=== PATIENT | female | born 1945 | race Caucasian/White ===

== ENCOUNTER 2016-09-13 11:14 | Inpatient (IN) | payer MEDICARE, BC ==
--- NOTE | 2016-09-11 16:09 | MH ---
cc: René ANNE. DATE OF ADMISSION: 09/17/2016 PREOPERATIVE DIAGNOSIS Osteoarthritic degeneration right hip, now being admitted for right total hip arthroplasty. HISTORY OF PRESENT ILLNESS: This pleasant 71 year-old female is being admitted today for right total hip arthroplasty due to severe painful osteoarthritic degeneration, right hip. OTHER PAST HISTORY: The patient has a history of anxiety, depression, hypertension, sleep apnea and stomach ulcers from NSAIDs. CURRENT MEDICATIONS: 1. Losartan. 2. Hydrochlorothiazide. 3. Lipitor. 4. Metoprolol. 5. Lexapro. 6. Protonix. 7. Wellbutrin. 8. Calcium. 9. Multivitamins. 10. Ultram as needed. PREVIOUS SURGERIES Right total knee arthroplasty April 28, 2002. Left total knee arthroplasty September 12, 2007. She had a colon resection in March 20, 2008. REVIEW OF SYSTEMS: Noncontributory. FAMILY HISTORY Noncontributory. SOCIAL HISTORY: She does not smoke or drink. ALLERGIES: No known allergies. PHYSICAL EXAMINATION We find a 71 year-old female well-developed, well-nourished oriented x3 complaining of pain in the right hip. Vital signs: Blood pressure 138/68, pulse 68 regular, respirations 20, temperature 97.7, pulse oximetry 98% on room air. HEENT: Eyes PERRL, EOMI. Ears, nose, mouth clear. Neck: Supple. Lungs: Clear. Heart: Regular rate. Abdomen: Soft. Positive bowel sounds, nontender. Extremities: Reveal the right hip to be tender with decreased range of motion, neurovascularly intact to her toes. IMPRESSION Severe painful osteoarthritic degeneration right hip. PLAN Admission right total hip arthroplasty today. The patient was given a prescription for postoperative pain, anticoagulation control as she plans on going home with home health care after surgery. She understands to use back of Bactroban and Hibiclens preoperatively. J. MD TIFFANIE Mcelroy/BERENICE /3:13 PM /3:22 PM
[~2016-09-13] VITALS: Ht 167.6 cm; Wt 94.6 kg
[2016-09-16] MEDS ORDERED: LOSA50TA PO (13:39)
[2016-09-16] MEDS ORDERED: HYDR25TA5 PO (13:39)
[2016-09-16] MEDS ORDERED: POTA10TA8 PO (13:39)
[2016-09-16] MEDS ORDERED: cpap FM (13:39)
[2016-09-16] MEDS ORDERED: MULT-120 PO (13:39)
[2016-09-16] MEDS ORDERED: PROT40TA PO (13:39)
[2016-09-16] MEDS ORDERED: METO-309 PO (13:39)
[2016-09-16] MEDS ORDERED: AMOX500C PO (13:39)
[2016-09-16] MEDS ORDERED: ACET-703 PO (13:39)
[2016-09-16] MEDS ORDERED: TRAM50TA PO (13:39)
[2016-09-16] MEDS ORDERED: LIPI20TA PO (13:39)
[2016-09-16] MEDS ORDERED: CALCTAB23 PO (13:39)
[2016-09-16] MEDS ORDERED: LEXA10TA PO (13:39)
[2016-09-17] MEDS ORDERED: ACETAMINOPHEN 1000 MG/100 ML VIAL IV ONE (06:30)
[2016-09-17] MEDS ORDERED: DEXAMETHASONE SOD PHOS 4 MG/ML VIAL ONE (06:30)
[2016-09-17] MEDS ORDERED: MIDAZOLAM HCL 2 MG/2 ML VIAL ONE (06:30)
[2016-09-17] MEDS ORDERED: FAMOTIDINE 20 MG/2 ML VIAL ONE (06:30)
[2016-09-17] MEDS ORDERED: fentaNYL CITRATE 250 MCG/5 ML AMP ONE (06:30)
[2016-09-17] MEDS ORDERED: LACTATED RINGER'S 1000 ML IV SCH (06:45)
[2016-09-17] MEDS ORDERED: SODIUM CHLORID 0.9% 500 ML IV SCH (06:45)
[2016-09-17] MEDS ORDERED: METOPROLOL TARTRATE 25 MG TAB PO PRN (06:45)
[2016-09-17] MEDS ORDERED: VANCOMYCIN 1000 MG/NS 250 ML (for <70 kg) IV SCH ×2 (06:45)
[2016-09-17] MEDS ORDERED: INSULIN HUMAN REGULAR 1,000 UNITS/10 ML VIAL SQ PRN (06:45)
[2016-09-17] MEDS ORDERED: ceFAZolin 2 GM PREMIX 50 ML IV SCH (06:45)
[2016-09-17 06:52] VITALS: BP 142/73; PULSE 55; RESP 18; TEMP 97.9; O2SAT 99
[2016-09-17] MEDS: CHLORHEXIDINE GLUCONATE 4% SOLN 120 ML BTL TOP SCH (07:06)
[2016-09-17] MEDS: SODIUM CHLORIDE 0.9% IV SCH ×2 (08:00→08:30)
[2016-09-17] MEDS: BUPIVACAINE LIPOSO PF 1.3% INJ 20 ML, BUPIVACAINE PF 0.25% INJ 20 ML in SODIUM CHLORIDE... P-ARTICULR SCH ×2 (08:00→10:23)
[2016-09-17] MEDS: TRANEXAMIC ACID IV SCH ×2 (08:00→08:30)
[2016-09-17 08:11] LABS: BLOOD, URINE NEG (NEG); COMMENT (UR) CATH-CULT NOT IND; CULTURE IF INDICATED CATH CULTURE NOT IND; GLUCOSE,URINE NEG (NEG); KETONE, URINE NEG (NEG); NITRITE,URINE NEG (NEG); SQUAMOUS EPITHELIAL CELL URINE <1 /hpf (0-5); URINE COLOR LIGHT-YELLOW (YELLW/STRAW)
[2016-09-17] MEDS ORDERED: ceFAZolin INJ 1,000 MG VIAL TOP ONE (09:07)
[2016-09-17] MEDS ORDERED: TRANEXAMIC ACID IV SCH (11:00)
[2016-09-17] MEDS ORDERED: SODIUM CHLORIDE 0.9% IV SCH (11:00)
--- NOTE | 2016-09-17 11:26 | HHI.FF ---
Face to Face Verification Diagnosis: (1) Status post total hip replacement, right Physical Therapy Gait training Hip: Total hip, Protocol: Right, Posterior hip precautions, Abduction pillow while in bed, Progress to weight bearing Canvas Knee Splint: When in bed & 2 pillows btw thighs Nursing RN: 3 days/week x 2 weeks Nursing: [employer] teaching, Dressing changes Dressing Changes: Daily dressing change, 4x4s, Gauze, Paper tape I have seen patient Sophie Desai on 09/17/16. My clinical findings support the need for the requested home health care services because: Limited ability to care for self High risk of falls I certify that my clinical findings support that this patient is homebound because: Unsteady gait/balance Darrell Isabel MD Sep 17, 2016 11:26
[2016-09-17] MEDS ORDERED: MISC-163 (11:29)
[2016-09-17] MEDS ORDERED: WALKER WHEELS/F1 MIS (11:29)
[2016-09-17] MEDS ORDERED: Post-op Orders (for Pharmacy) MISC XX ONE (11:30)
[2016-09-17] MEDS ORDERED: DO NOT ADM ANY ANTICOAGULANT DRUGS XX PRN (11:30)
[2016-09-17] MEDS ORDERED: MISCELLANEOUS NURSING INFORMATION XX PRN (11:30)
[2016-09-17] MEDS ORDERED: NALOXONE HCL 0.4 MG/ML AMP IV PRN (11:30)
[2016-09-17] MEDS ORDERED: TRANEXAMIC ACID INJ 0 MG in SODIUM CHLORIDE 0.9% INJ 100 ML IV SCH (11:30)
[2016-09-17] MEDS ORDERED: ACETAMINOPHEN 325 MG TAB PO PRN (11:30)
[2016-09-17] MEDS ORDERED: SODIUM CHLORIDE 0.9% FLUSH 5 ML FLUSH IVF PRN (11:30)
[2016-09-17] MEDS ORDERED: ACETAMINOPHEN 500 MG CPLT PO PRN (11:30)
[2016-09-17] MEDS ORDERED: ONDANSETRON HCL 4 MG/2 ML VIAL IVP PRN (11:30)
[2016-09-17] MEDS ORDERED: BISACODYL 10 MG SUPP PR PRN (11:30)
[2016-09-17] MEDS ORDERED: MORPHINE SULFATE 8 MG/ML INJ IV PUSH PRN (11:30)
[2016-09-17] MEDS ORDERED: TEMAZEPAM 15 MG CAP PO PRN (11:30)
[2016-09-17] MEDS: LACTATED RINGER'S 1000 ML INJ 1,000 ML IV SCH ×2 (12:40→21:53)
--- NOTE | 2016-09-17 13:21 | RADRPT ---
EXAM DATE/TIME: 09/17/2016 11:34 [facility] COMPARISON: No previous studies available for comparison. INDICATIONS : Post op right hip sugery. MEDICAL HISTORY : Unobtainable. SURGICAL HISTORY : Unobtainable. ENCOUNTER: Initial ACUITY: 1 day PAIN SCORE: 4/10 LOCATION: Right hip. FINDINGS: Single view demonstrates placement of total hip prosthesis well seated CONCLUSION: Total hip prosthesis well seated Kam Morris MD on September 17, 2016 at 13:19 Board Certified Radiologist. This report was verified electronically.
[2016-09-17] MEDS: MORPHINE SULFATE 30 MG/30 ML PCA IV SCH (13:39)
[2016-09-17] MEDS: PCA - TOTAL MG MORPHINE DELIVERED PER SHIFT SCH ×2 (14:00→21:53)
[2016-09-17] MEDS ORDERED: ONDANSETRON HCL 4 MG/2 ML VIAL IV PUSH ONE (14:43)
[2016-09-17] MEDS ORDERED: PROPOFOL 200 MG/20 ML AMP IV ONE (14:43)
[2016-09-17] MEDS ORDERED: NORMOSOL R INJ 1,000 ML IV ONE (14:43)
[2016-09-17 15:00] VITALS: BP 130/63; PULSE 68; RESP 17; TEMP 95.4; O2SAT 98
[2016-09-17 18:25] VITALS: O2SAT 97
[2016-09-17 20:00] VITALS: BP 155/80; PULSE 92; RESP 20; TEMP 98.9; O2SAT 97
[2016-09-17] MEDS: METOPROLOL TARTRATE 25 MG TAB PO SCH (21:34)
[2016-09-17] MEDS: CALCIUM/VITAMIN D 250 MG/125 U TAB PO SCH (21:34)
[2016-09-17] MEDS: ATORVASTATIN 20 MG TAB PO SCH (21:34)
[2016-09-17] MEDS: LOSARTAN 50 MG TAB PO SCH (21:34)
[2016-09-17] MEDS: AMOXICILLIN (TRIHYDRATE) 500 MG CAP PO SCH (21:35)
[2016-09-17] MEDS: SODIUM CHLORIDE 0.9% FLUSH 5 ML FLUSH IVF SCH (21:35)
[2016-09-18] VITALS (8 sets, daily range): BP systolic 117–147; BP diastolic 58–66; PULSE 75–98; RESP 15–20; TEMP 96.8–99.5; O2SAT 92–100
[2016-09-18] MEDS: MORPHINE SULFATE 30 MG/30 ML PCA IV SCH (01:14)
[2016-09-18] MEDS: CHLORHEXIDINE GLUCONATE 4% SOLN 120 ML BTL TOP SCH ×2 (03:41→19:35)
[2016-09-18] MEDS: PCA - TOTAL MG MORPHINE DELIVERED PER SHIFT SCH (06:00)
[2016-09-18 08:26] LABS: HEMATOCRIT 32.2 % (35.0-46.0); REVIEW FLAG FINAL
--- NOTE | 2016-09-18 08:26 | PD.ORT.PN ---
Subjective Subjective Remarks pt comfortable today. No complaints. Objective Vitals Vital Signs Date Time Temp Pulse Resp B/P Pulse Ox O2 Delivery O2 Flow Rate FiO2 09/18/16 04:00 97.7 98 20 143/64 94 09/18/16 00:00 99.2 96 20 140/65 95 09/17/16 20:00 98.9 92 20 155/80 97 09/17/16 18:25 97 21 09/17/16 15:00 95.4 68 17 130/63 98 09/17/16 14:00 64 16 144/77 97 Room Air 09/17/16 13:39 16 09/17/16 13:30 66 16 130/76 97 Room Air 09/17/16 12:45 58 16 141/78 97 Room Air 09/17/16 12:30 97.4 56 16 135/73 97 Room Air 09/17/16 12:15 52 16 145/80 97 Room Air 09/17/16 12:00 52 16 144/76 97 Room Air 09/17/16 11:45 84 16 146/75 97 Room Air 09/17/16 11:30 84 16 135/78 97 Room Air 09/17/16 11:25 95.8 58 16 144/76 99 I/O 09/17/16 09/17/16 09/17/16 09/18/16 09/18/16 09/18/16 07:00 15:00 23:00 07:00 15:00 23:00 Intake Total 50 ml 581 ml 1744 ml Output Total 150 ml Balance -100 ml 581 ml 1744 ml Intake Oral 1020 ml IV Total 50 ml 581 ml 724 ml Output Urine Total 150 ml Imaging Last 24 hours Impressions Hip X-Ray 09/17/16 1122 Signed Impressions: Service Date/Time: Saturday, September 17, 2016 11:34 - CONCLUSION: Total hip prosthesis well seated Kam Morris MD Objective Remarks NV intact to toes. Lying in bed at moment. No calf tenderness. Assessment & Plan Ortho Post Op Day #: 1 Problem List: Assessment and Plan OOB, PT, DC PATIENT ACCOUNTS MANAGER, daily wound care. Darrell Isabel MD Sep 18, 2016 08:26
[2016-09-18] MEDS ORDERED: MULTIVITAMINS/MINERALS THERAPEUTIC TAB PO SCH (09:00)
[2016-09-18] MEDS: SODIUM CHLORIDE 0.9% FLUSH 5 ML FLUSH IVF SCH ×2 (09:00→20:43)
[2016-09-18] MEDS: LOSARTAN 50 MG TAB PO SCH ×2 (09:46→20:38)
[2016-09-18] MEDS: PANTOPRAZOLE SOD 40 MG DELAYED RELEASE TAB PO SCH (09:46)
[2016-09-18] MEDS: CALCIUM/VITAMIN D 250 MG/125 U TAB PO SCH ×2 (09:46→20:39)
[2016-09-18] MEDS: ESCITALOPRAM OXALATE 10 MG TAB PO SCH (09:46)
[2016-09-18] MEDS: POTASSIUM CHLORIDE 10 MEQ CONTROLLED RELEASE TAB PO SCH (09:47)
[2016-09-18] MEDS: METOPROLOL TARTRATE 25 MG TAB PO SCH ×2 (09:47→20:38)
[2016-09-18] MEDS: HYDROCHLOROTHIAZIDE 25 MG TAB PO SCH (09:47)
[2016-09-18] MEDS: MAGNESIUM HYDROXIDE SUSP 30 ML CUP PO PRN (09:47)
[2016-09-18] MEDS: AMOXICILLIN (TRIHYDRATE) 500 MG CAP PO SCH ×2 (09:54→20:38)
[2016-09-18] MEDS: ENOXAPARIN SODIUM 30 MG/0.3 ML SYRINGE SQ SCH ×2 (11:51→22:47)
[2016-09-18] MEDS: LACTATED RINGER'S 1000 ML INJ 1,000 ML IV SCH ×2 (12:22→22:35)
[2016-09-18] MEDS: ACETAMINOPHEN/HYDROcodone 325 MG/7.5 MG TAB PO PRN ×2 (13:01→17:44)
[2016-09-18] MEDS: MULTIVITAMINS/MINERALS THERAPEUTIC TAB PO SCH (20:38)
[2016-09-18] MEDS: DOCUSATE SODIUM 100 MG CAP PO SCH (20:38)
[2016-09-18] MEDS: ATORVASTATIN 20 MG TAB PO SCH (20:38)
[2016-09-19 04:58] LABS: HEMATOCRIT 30.6 % (35.0-46.0); REVIEW FLAG FINAL
[2016-09-19] MEDS: MAGNESIUM HYDROXIDE SUSP 30 ML CUP PO PRN (05:53)
[2016-09-19] MEDS: ACETAMINOPHEN/HYDROcodone 325 MG/7.5 MG TAB PO PRN ×3 (05:53→21:05)
[2016-09-19 08:00] VITALS: BP 114/55; PULSE 80; RESP 18; TEMP 97.9; O2SAT 97
[2016-09-19] MEDS: LOSARTAN 50 MG TAB PO SCH ×2 (08:14→21:05)
[2016-09-19] MEDS: PANTOPRAZOLE SOD 40 MG DELAYED RELEASE TAB PO SCH (08:14)
[2016-09-19] MEDS: DOCUSATE SODIUM 100 MG CAP PO SCH ×2 (08:14→21:02)
[2016-09-19] MEDS: ESCITALOPRAM OXALATE 10 MG TAB PO SCH (08:14)
[2016-09-19] MEDS: POTASSIUM CHLORIDE 10 MEQ CONTROLLED RELEASE TAB PO SCH (08:14)
[2016-09-19] MEDS: METOPROLOL TARTRATE 25 MG TAB PO SCH ×2 (08:15→21:05)
[2016-09-19] MEDS: HYDROCHLOROTHIAZIDE 25 MG TAB PO SCH (08:15)
[2016-09-19] MEDS: CALCIUM/VITAMIN D 250 MG/125 U TAB PO SCH ×2 (08:15→21:05)
[2016-09-19] MEDS: MULTIVITAMINS/MINERALS THERAPEUTIC TAB PO SCH ×2 (08:16→21:05)
[2016-09-19] MEDS: SODIUM CHLORIDE 0.9% FLUSH 5 ML FLUSH IVF SCH ×2 (08:16→21:02)
[2016-09-19] MEDS: AMOXICILLIN (TRIHYDRATE) 500 MG CAP PO SCH ×2 (08:16→21:04)
[2016-09-19] MEDS: LACTATED RINGER'S 1000 ML INJ 1,000 ML IV SCH ×2 (08:18→23:04)
[2016-09-19] MEDS: ENOXAPARIN SODIUM 30 MG/0.3 ML SYRINGE SQ SCH ×2 (11:08→23:34)
[2016-09-19 12:00] VITALS: BP 111/54; PULSE 86; RESP 18; TEMP 98.4; O2SAT 95
--- NOTE | 2016-09-19 12:12 | PD.ORT.PN ---
Subjective Subjective Remarks pt comfortable today. No complaints. Objective Vitals Vital Signs Date Time Temp Pulse Resp B/P Pulse Ox O2 Delivery O2 Flow Rate FiO2 09/19/16 08:00 97.9 80 18 114/55 97 09/19/16 06:33 18 09/18/16 23:41 97.6 80 15 117/59 100 09/18/16 19:00 96.8 75 16 126/58 94 09/18/16 16:49 98.7 85 16 124/63 95 I/O 09/18/16 09/18/16 09/18/16 09/19/16 09/19/16 09/19/16 07:00 15:00 23:00 07:00 15:00 23:00 Intake Total 1744 ml 960 ml 480 ml Balance 1744 ml 960 ml 480 ml Intake Oral 1020 ml 960 ml 480 ml IV Total 724 ml # Voids 2 3 # Bowel Movements 0 Result Diagram: 09/19/16 0343 Imaging Last 24 hours Impressions Hip X-Ray 09/17/16 1122 Signed Impressions: Service Date/Time: Saturday, September 17, 2016 11:34 - CONCLUSION: Total hip prosthesis well seated Kam Morris MD Objective Remarks NV intact to toes.Ambulating well with walker. Dressing dry and intact. Assessment & Plan Ortho Post Op Day #: 2 Problem List: Assessment and Plan OOB, PT, daily wound care. Home tomorrow with home health care and PT. Darrell Isabel MD Sep 19, 2016 12:12
[2016-09-19 16:00] VITALS: BP 107/57; PULSE 87; RESP 18; TEMP 98.7; O2SAT 96
[2016-09-19 20:00] VITALS: BP_SYST 105; BP_SYST 115; BP_DIAS 57; BP_DIAS 99; PULSE 95; PULSE 96; RESP 18; RESP 20; TEMP 96.2; TEMP 99.7; O2SAT 95; O2SAT 97
[2016-09-19] MEDS: ATORVASTATIN 20 MG TAB PO SCH (21:04)
[2016-09-20] VITALS: BP 126/59; PULSE 81; RESP 22; TEMP 97.4; O2SAT 95
[2016-09-20 08:00] VITALS: BP 125/60; PULSE 91; RESP 18; TEMP 99.3; O2SAT 94
[2016-09-20] MEDS: AMOXICILLIN (TRIHYDRATE) 500 MG CAP PO SCH (09:00)
[2016-09-20] MEDS: SODIUM CHLORIDE 0.9% FLUSH 5 ML FLUSH IVF SCH (09:00)
--- NOTE | 2016-09-20 09:09 | HHI.DS ---
Discharge Summary Admission Date Sep 17, 2016 at 05:53 Discharge Date: Sep 20, 2016 Admitting Diagnosis osteoarthritic degeneration right hip Diagnosis: (1) Status post total hip replacement, right Diagnosis: Principal Brief History This is a 71 year old female patient CBC/BMP: 09/19/16 0343 Significant Findings Laboratory Tests Test 09/18/16 09/19/16 08:01 03:43 Hemoglobin 11.3 GM/DL 10.8 GM/DL (11.6-15.3) (11.6-15.3) Hematocrit 32.2 % 30.6 % (35.0-46.0) (35.0-46.0) PE at Discharge NV intact to toes.Ambulating well with walker. Dressing dry and intact. Hospital Course Patient was admitted on September 17, 2016 with severe pain and osteoarthritic degeneration right hip at which time she underwent a right total hip arthroplasty. She received a course of prophylactic IV antibiotics and was started on anticoagulation therapy 23 hours after surgery. She began out of bed the following day continue to improve with physical therapy and daily wound care. She remained afebrile neurovascularly intact tolerating food and fluids well. She was discharged to home on postoperative day #3 in good condition with instructions for home health care and physical therapy and daily wound care. She has appointment for follow-up in the office as well. Pt Condition on Discharge: Good Discharge Disposition: Disch w/ Home Health Serv Discharge Instructions Diet Instructions: As Tolerated, No Restrictions Activities You Can Perform: Full Weight Bearing, Shower Only-No Bath Activities to Avoid: Bathing, Driving Darrell Isabel MD Sep 20, 2016 09:09
--- NOTE | 2016-09-20 09:15 | PD.PN.STU ---
Subjective Remarks 71 yo C female s/p left total hip replacement POD#3 She has no complaints and denies any nausea, vomiting or pain. She has had bowel movements. She has been up and walking with her walker. She states she is excited to go home and have home health therapy. She was given some potassium pills prior to surgery. She inquires if she needs to continue taking them. Objective Vitals Vital Signs Date Time Temp Pulse Resp B/P Pulse Ox O2 Delivery O2 Flow Rate FiO2 09/20/16 00:00 97.4 81 22 126/59 95 09/19/16 20:00 96.2 96 18 115/99 95 09/19/16 16:00 98.7 87 18 107/57 96 09/19/16 12:00 98.4 86 18 111/54 95 I/O 09/19/16 09/19/16 09/19/16 09/20/16 09/20/16 09/20/16 07:00 15:00 23:00 07:00 15:00 23:00 Intake Total 720 ml 150 ml Balance 720 ml 150 ml Intake Oral 720 ml 150 ml # Voids 5 3 # Bowel Movements 1 0 Result Diagram: 09/19/16 0343 Objective Remarks General: well-developed, well-nourished female. Pleasant and cooperative. Sitting in chair with no signs of acute distress. Extremities: No redness or swelling noted. A/P Assessment and Plan 71 yo C female s/p right total hip replacement POD#3 - obtain potassium level via electrolyte panel - discharge home today with home health Scarlet Elder Sep 20, 2016 09:15 Darrell Isabel MD Sep 20, 2016 09:44
[2016-09-20] MEDS: CALCIUM/VITAMIN D 250 MG/125 U TAB PO SCH (09:35)
[2016-09-20] MEDS: MULTIVITAMINS/MINERALS THERAPEUTIC TAB PO SCH (09:35)
[2016-09-20] MEDS: POTASSIUM CHLORIDE 10 MEQ CONTROLLED RELEASE TAB PO SCH (09:35)
[2016-09-20] MEDS: ESCITALOPRAM OXALATE 10 MG TAB PO SCH (09:35)
[2016-09-20] MEDS: HYDROCHLOROTHIAZIDE 25 MG TAB PO SCH (09:35)
[2016-09-20] MEDS: PANTOPRAZOLE SOD 40 MG DELAYED RELEASE TAB PO SCH (09:35)
[2016-09-20] MEDS: DOCUSATE SODIUM 100 MG CAP PO SCH (09:36)
[2016-09-20] MEDS: ENOXAPARIN SODIUM 30 MG/0.3 ML SYRINGE SQ SCH (09:36)
[2016-09-20] MEDS: METOPROLOL TARTRATE 25 MG TAB PO SCH (09:36)
[2016-09-20] MEDS: ACETAMINOPHEN/HYDROcodone 325 MG/7.5 MG TAB PO PRN (09:36)
[2016-09-20] MEDS: LOSARTAN 50 MG TAB PO SCH (09:36)
[2016-09-20 11:13] LABS: BICARBONATE 30.5 MEQ/L (21.0-32.0); POTASSIUM 3.2 MEQ/L (3.5-5.1)
[2016-09-20 12:00] VITALS: BP 113/59; PULSE 70; RESP 18; TEMP 96.5; O2SAT 96
--- NOTE | 2016-09-21 21:49 | MP ---
cc: Darrell ANNE Corrected Copy: 09/25/16 DATE OF SURGERY 09/17/16 PREOPERATIVE DIAGNOSIS Osteoarthritic degeneration right hip POSTOPERATIVE DIAGNOSIS Osteoarthritic degeneration right hip PROCEDURE Right total hip arthroplasty using A[employer]cul[employer] components size 52 cup with a 36 E-liner, 28-mm screw for the acetabulum and a size 11 lateralized Press-Fit stem with a short neck 36 ceramic head. No cement utilized. SURGEON Dr. Jose Eduardo Anne [employer] Ratna Dykes, [facility] and medical student Cherise Elder, medical student third year [employer]. ANESTHESIA Spinal PROCEDURE IN DETAIL The patient was brought to the Operating Room, where after successful induction of spinal anesthesia was placed on the operating room table in the right lateral decubitus position. The right hip, thigh and leg were prepped and draped in the usual manner. A posterolateral approach was then utilized by making an incision over the proximal portion of the femur lateral aspect, carried across the greater trochanter, carried posterior in a curved incision toward the buttock. The incision was carried down through the subcutaneous tissue, through the fibers of the tensor fascia hattie and gluteus dani to expose the greater trochanteric bursa. This was then removed by sharp and blunt dissection. The hip was then internally rotated to expose the insertions of the short external rotators of the hip and were incised at their insertion into the greater trochanter and reflected posterior to protect the sciatic nerve. These were held with a Charnley retractor to better visualize the hip joint. The capsule was identified and removed by sharp dissection. The hip was then dislocated by internal rotation and flexion of the hip. The femoral calcar was then measured using the trial components for the appropriate length cut of the neck using an oscillating saw. After the cut was made the head was removed. The acetabulum was then approached and measured, the acetabulum reamed with the acetabular reamers. Next, the femoral calcar was approached by first inserting a canal finder followed by rigid reamers, followed by a cookie-cutter to the appropriate size, in this case being a #15. The broach was left in place and a planer used to plane the calcar to a smooth finish. The broach was then removed. The trial components were then inserted into place, the hip reduced, found to track smoothly with no evidence of subluxation or dislocation. All trial components were removed. The wound was irrigated copiously with antibiotic solution and Water Pik. The actual components were then inserted and impacted into place using the aforementioned components. The hip was reduced, found to track smoothly with no evidence of subluxation or dislocation. The wound was irrigated copiously with antibiotic solution, meticulous hemostasis achieved. The capsule was then approximated using interrupted #1 Vicryl suture, two Hemovacs inserted. The deep fascia approximated with running #2 quill, subcutaneous tissue approximated using multiple layers of 2-0 and 3-0 Monocryl suture and subcuticular 3-0 Monocryl suture and Steri-Strips, sterile dressing, knee immobilizer and abduction pillow brace. Sciatic nerve identified, protected throughout the procedure. No drain utilized. Estimated blood loss 250 mL, 60 of Exparel used around the anterior hip joint for extra pain control being careful to stay away from the sciatic nerve. The patient tolerated the procedure well and left the operating room in satisfactory condition. J. MD TIFFANIE Mcelroy/ /10:55 AM /9:57 AM
== END 2016-09-20 12:27 | disposition home health service (06) | DRG 470 ==
LOC: HSDI 09-17 05:53 → EDUNIT# 09-17 14:00 → N06B 09-17 14:51
PROVIDERS: ADMIT Surgery; ATTEND Surgery
PROC: 0SR903A Replacement of Right Hip Joint with Ceramic Synthetic Substitute, Uncemented, Open Approach (ICD-10-PCS; principal; 2016-09-17 08:09)
DX: M16.11 Unilateral primary osteoarthritis, right hip (principal); I10 Essential (primary) hypertension; G47.30 Sleep apnea, unspecified; Z87.11 Personal history of peptic ulcer disease; F32.9 Major depressive disorder, single episode, unspecified; F41.9 Anxiety disorder, unspecified; Z96.653 Presence of artificial knee joint, bilateral
CPT/HCPCS: 73501; 80051; 81001; 85014; 85018; 86850; 86900; 86901; 94150; C1776; C9290; J0131; J0690; J1100; J1650; J2250; J2270; J2405; J3010; J3370; J7050; J7120; L1830